=== PATIENT | female | born 1965 | race Caucasian/White ===

== ENCOUNTER 2018-07-03 09:18 | Outpatient (CLI) | payer OTHER ==
--- NOTE | 2018-07-30 11:49 | MMO ---
BILATERAL SCREENING MAMMOGRAM: History: Annual screening exam. Comparison: None available. Previous films cannot be located. This study is interpreted with the assistance of computer aided detection. FINDINGS: Scattered fibroglandular changes of both breasts are present. There is no dominant mass, suspicious c alcification or other signs of malignancy. IMPRESSION: BIRADS category 1 - negative. POS: [facility]
== END 2018-07-03 09:19 | disposition home or self-care (01) ==
LOC: SCSMAMMO 09:18
PROVIDERS: ATTEND Family Medicine
DX: Z12.31 Encounter for screening mammogram for malignant neoplasm of breast (principal)
CPT/HCPCS: 77067

== ENCOUNTER 2019-06-24 16:13 | Outpatient (CLI) | payer BC ==
--- NOTE | 2019-07-07 14:39 | MMO ---
Bilateral MAMMO Bilat Screen [facility]. CLINICAL HISTORY: Patient is 54 years old and is seen for screening. The patient has no family history of breast cancer. The patient has no personal history of cancer. VIEWS: The views performed were: bilateral craniocaudal with tomosynthesis and bilateral mediolateral oblique with tomosynthesis. FILMS COMPARED: The present examination has been compared to prior imaging studies performed at [facility] on 07/03/2018, and at [facility] on 11/23/2010, 07/28/2014 and 07/11/2016. This study has been interpreted with the assistance of computer-aided detection. MAMMOGRAM FINDINGS: There are scattered fibroglandular densities. There are benign appearing calcifications seen in both breasts. There are no suspicious masses, suspicious calcifications, or new areas of architectural distortion. IMPRESSION: THERE IS NO MAMMOGRAPHIC EVIDENCE OF MALIGNANCY. A ROUTINE FOLLOW-UP MAMMOGRAM IN 1 YEAR IS RECOMMENDED. THE RESULTS OF THIS EXAM WERE SENT TO THE PATIENT. ACR BI-RADS Category 2 - Benign finding MAMMOGRAPHY NOTE: 1. A negative mammogram report should not delay a biopsy if a dominant of clinically suspicious mass is present. 2. Approximately 10% to 15% of breast cancers are not detected by mammography. 3. Adenosis and dense breasts may obscure an underlying neoplasm. Reported by: ASAD SANTIAGO MD Electonically Signed: [id number]
== END 2019-06-24 16:14 | disposition home or self-care (01) ==
LOC: BICMAMMO 16:13
PROVIDERS: ATTEND Nurse Practitioner Family
DX: Z12.31 Encounter for screening mammogram for malignant neoplasm of breast (principal)
CPT/HCPCS: 77063; 77067

== ENCOUNTER 2019-08-13 10:08 | Outpatient (CLI) | payer BC ==
--- NOTE | 2019-08-14 12:28 | PET ---
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 E xam requested for initial staging. TECHNIQUE: PET scanning with CT attenuation correction was performed from the base of the brain through the prox imal thighs following the intravenous administration of 11 mCi [id number]. COMPARISON: None. CORRELATION: None. FINDINGS: No brendon hypermetabolism is seen in the neck, chest, axilla, abdomen, pelvis, or inguinal regions. N o hypermetabolic pulmonary nodules, liver, adrenal, or skeletal lesions are seen. There is physiologic uptake in the GI and tracts and visualized portions of the brain. The CT scan used for attenuation correction demonstrates no evidence of pleural effusions or ascites. IMPRESSION: No evidence of fluorodeoxyglucose-avid disease. POS: [facility]
== END 2019-08-13 10:09 | disposition home or self-care (01) ==
LOC: PET 10:08
PROVIDERS: ATTEND Internal Medicine Hematology & Oncology
DX: C88.4 Extranodal marginal zone B-cell lymphoma of mucosa-associated lymphoid tissue [MALT-lymphoma] (principal)
CPT/HCPCS: 78815; A9552

== ENCOUNTER 2020-03-08 08:46 | Outpatient (CLI) | payer BC, OTHER ==
--- NOTE | 2020-03-08 13:14 | CT ---
CT CHEST AND ABDOMEN AND PELVIS WITH CONTRAST: INDICATION: Gastric lymphoma. Post radiation. Restaging. COMPARISON: No comparison CT studies. Correlation made to PET CT of 08/13/2019. FINDINGS: CT CHEST: The lung jacinto are clear. There is no infiltrate or effusion. No evidence of mass or nodule. The mediastinum is unremarkable. No adenopathy. Nonspecific axillary lymph nodes. The osseous stru ctures of the thorax appear unremarkable. Thoracic vertebrae maintain height and alignment. IMPRESSION: Unremarkable CT chest. CT ABDOMEN AND PELVIS: Liver and pancreas appear unremarkable. Post cholecystectomy change. The patient is post splenectomy. There are surgical clips in the left upper quadrant. There is a ro unded density in the left upper quadrant consistent with a splenule measuring approximately 2.5 cm. Stomach and duodenum appear unremarkable. The adrenal glands and kidneys are unremarkable. A small 1.0 cm cyst superior left renal cortex is n oted. The small bowel loops show nonspecific distention. No significant fold thickening or dilatation. Ap pendix appears normal. Colon is unremarkable. Aorta shows atherosclerotic calcification with normal caliber. Nonspecific paraaortic lymph nodes are subcentimeter. Images through the pelvis show unremarkable uterus and adnexa. The urinary bladder is unremarkable. Osseous structures unremarkable. Vertebral bodies maintain height. There is a slight anterolisthes is at L4-5. No evidence of spondylolysis. IMPRESSION: 1. Post splenectomy and cholecystectomy changes. 2. No acute process identified. POS: OFF
== END 2020-03-08 08:47 | disposition home or self-care (01) ==
LOC: SCSCT 08:46
PROVIDERS: ATTEND Radiology Radiation Oncology
DX: C85.99 Non-Hodgkin lymphoma, unspecified, extranodal and solid organ sites (principal); Z90.81 Acquired absence of spleen; Z90.49 Acquired absence of other specified parts of digestive tract
CPT/HCPCS: 71260; 74177

== ENCOUNTER 2020-04-06 07:48 | Outpatient (CLI) | payer BC ==
[2020-04-06 18:39] LABS: #Basophils 0.1 10x3/uL (0.0-0.2); #Eosinphils 0.3 10x3/uL (0.0-0.5); #Neutrophils 5.7 10x3/uL (1.5-8.4); %Basophils 1.1 % (0.0-2.0); %Eosinophils 3.8 % (0.0-6.0); %Lymphocytes 19.3 % (18.0-47.0); %Monocytes 11.7 % (0.0-10.0); %Neutrophils 63.8 % (40.0-75.0); Hemoglobin 13.2 g/dL (12.0-16.0); Mean Corpuscular HGB CONC 33.2 G/DL (32.0-36.0); Mean Corpuscular Volume 93.4 fl (80.0-100.0); Mean Platelet Volume 12.9 fl (7.4-10.4); Platelet Count 340 10x3/uL (130-400); RBC Distribution Width 13.4 % (11.5-14.5); Red Blood Cell (RBC) Count 4.26 10x6/uL (3.90-5.20); White Blood Cell (WBC) Count 8.9 10x3/uL (4.5-11.0)
[2020-04-06 18:47] LABS: ALT (SGPT) 53 U/L (8-55); AST (SGOT) 49 U/L (5-34); Albumin 4.3 g/dL (3.5-5.0); Alkaline Phosphatase 304 U/L (40-110); Anion Gap 15 mmol/L (10-20); BUN (Urea Nitrogen) 17 mg/dL (9.8-20.1); Bilirubin, Total 0.5 mg/dL (0.2-1.2); Calc. Creatinine Clearance 0 mL/min (70-130); Calcium 9.3 mg/dL (7.8-10.44); Carbon Dioxide 26 mmol/L (22-29); Chloride 103 mmol/L (98-107); Estimated GFR-MDRD 81; Globulin 3.3 g/dL (2.4-3.5); Glucose 79 mg/dL (70-105); Potassium 4.3 mmol/L (3.5-5.1); Protein, Total 7.6 g/dL (6.0-8.3); Sodium 140 mmol/L (136-145)
[2020-04-07 09:32] LABS: SARS-CoV-2 MS2 Positive; SARS-CoV-2 N Gene Negative; SARS-CoV-2 S Gene Negative; SARS-CoV-2 by NAA Not Detected (NotDetected); SARS-CoV-2 orf1ab Negative
== END 2020-04-06 07:49 | disposition home or self-care (01) ==
LOC: LABBT 07:48
PROVIDERS: ATTEND Surgery
DX: Z01.818 Encounter for other preprocedural examination (principal); Z20.828 Contact with and (suspected) exposure to other viral communicable diseases
CPT/HCPCS: 80053; 85025; 87635; 93005; 93010; U0003

== ENCOUNTER 2020-04-08 05:59 | Day surgery (SDC) | payer BC ==
[2020-04-08] MEDS ORDERED: Fentanyl 100 MCG/2 ML VIAL ONE (07:01)
[2020-04-08] MEDS ORDERED: Midazolam HCl 2 mg/2 ml Vial ONE (07:28)
[2020-04-08] MEDS ORDERED: Bupivacaine 0.25% HCL 30 ML VIAL ONE (08:14)
[2020-04-08] MEDS ORDERED: Lidocaine 1% w/Epinephrine 1:100K 20 ML VIAL ONE (08:14)
--- NOTE | 2020-04-08 09:16 | OP ---
DATE OF PROCEDURE: 04/08/2020 PREOPERATIVE DIAGNOSIS: Lipoma of left hip. PROCEDURE PERFORMED: Excision. INDICATIONS: This is a 55-year-old female with an enlarging soft tissue mass, left hip. FINDINGS: A 4 x 5 cm multilobular lipoma of left anterior lateral hip. DESCRIPTION OF PROCEDURE: After informed consent was obtained, the patient was taken to the operating room, given general mask anesthesia, placed in the supine position. Her leg was prepped and draped in usual fashion. Local anesthesia was infiltrated subcutaneously and deep. An oblique incision was performed over the mass. Subcu divided sharply. The capsule was dissected out with digital dissection and the lipoma was removed. Hemostasis was achieved by electrocautery. Subcu reapproximated with interrupted 3-0 Vicryl. Skin closed with a running subcuticular 4-0 Rapide. Steri-Strips applied. Sterile bandage applied. The patient tolerated the procedure well, transferred to Recovery in good condition. Sponge and needle count verified correct x2. Job ID: [id number]
[2020-04-08] MEDS ORDERED: PROPOFOL 200 MG/20 ML VIAL ONE (12:51)
[2020-04-08] MEDS ORDERED: Lidocaine 1% PF 5 ML VIAL ONE (12:51)
[2020-04-08] MEDS ORDERED: Ondansetron PF 4 MG/2 ML Vial ONE (12:51)
[2020-04-08] MEDS ORDERED: Dexamethasone 20 MG/5 ML VIAL ONE (12:51)
== END 2020-04-08 10:25 | disposition home or self-care (01) ==
LOC: SDC 05:59
PROVIDERS: ATTEND Surgery
PROC: 0JBM0ZZ Excision of Left Upper Leg Subcutaneous Tissue and Fascia, Open Approach (ICD-10-PCS; principal; 2020-04-08)
DX: D17.1 Benign lipomatous neoplasm of skin and subcutaneous tissue of trunk (principal); J44.9 Chronic obstructive pulmonary disease, unspecified; E03.9 Hypothyroidism, unspecified; F41.9 Anxiety disorder, unspecified; D69.3 Immune thrombocytopenic purpura; F17.210 Nicotine dependence, cigarettes, uncomplicated; F17.290 Nicotine dependence, other tobacco product, uncomplicated; Z79.52 Long term (current) use of systemic steroids; Z79.899 Other long term (current) drug therapy; Z88.1 Allergy status to other antibiotic agents; Z88.2 Allergy status to sulfonamides
CPT/HCPCS: 88304; J0690; J1100; J2250; J2405; J2704; J3010; S0020